=== PATIENT | male | born 1940 | race Caucasian/White ===

== ENCOUNTER 2023-07-21 13:26 | Outpatient (CLI) | payer MEDICAID, SELFPAY | END 2023-07-21 13:27 | disposition home or self-care (01) | PROVIDERS: PCP Family Medicine; Visit Provider Family Medicine | DX: Z00.00 Encounter for general adult medical examination without abnormal findings (principal); I10 Essential (primary) hypertension; I25.10 Atherosclerotic heart disease of native coronary artery without angina pectoris; I48.91 Unspecified atrial fibrillation | CPT/HCPCS: 80053; 82043; 82570 ==

== ENCOUNTER 2023-07-31 13:36 | Outpatient (CLI) | payer MEDICARE, SELFPAY ==
--- NOTE | 2023-07-31 14:00 | US_ITS ---
Patient: JOEL ROBLES Facility:?[facility] Patient ID:?[id number] Site Patient ID:?[id number]. Site :?[id number] Study:?US-Abdomen Aorta-07/31/2023 2:50:52 PM Ordering Physician:Karly Mulligan Final Report: INDICATION: History of smoking; screening for abdominal aortic aneurysm. COMPARISON: None. TECHNIQUE: Ultrasound examination of the abdominal aorta. FINDINGS: The proximal abdominal aorta measures 1.8 cm, midabdominal aorta measures 1.7 cm and the distal abdominal aorta measures 1.6 cm in AP diameter. The right common iliac artery measures 1.1 cm and the left common iliac artery measures 1 cm. Atheromatous changes abdominal aorta. IMPRESSION: No evidence of abdominal aortic aneurysm. Dictated by James Elias MD @ 08/01/2023 2:56:32 PM Signed by:?James Elias MD @08/01/2023 2:56:32 PM (Electronic Signature)
== END 2023-07-31 13:37 | disposition home or self-care (01) ==
LOC: US 13:37
PROVIDERS: PCP Family Medicine; Visit Provider Family Medicine
DX: Z13.6 Encounter for screening for cardiovascular disorders (principal); I25.10 Atherosclerotic heart disease of native coronary artery without angina pectoris; I48.91 Unspecified atrial fibrillation; Z87.891 Personal history of nicotine dependence
CPT/HCPCS: 76706

== ENCOUNTER 2024-07-19 14:11 | Outpatient (CLI) | payer MEDICARE, SELFPAY | END 2024-07-19 14:12 | disposition home or self-care (01) | LOC: NFLDREF 07-20 10:40 | PROVIDERS: PCP Family Medicine; Referring Provider Family Medicine; Visit Provider Family Medicine | DX: I10 Essential (primary) hypertension (principal); I48.91 Unspecified atrial fibrillation; I25.10 Atherosclerotic heart disease of native coronary artery without angina pectoris | CPT/HCPCS: 80053; 82043; 82570 ==